=== PATIENT | female | born 1945 ===

== ENCOUNTER 2024-02-23 08:02 | Inpatient (IN) | payer MEDICARE, OTHER ==
[2024-02-23] MEDS ORDERED: Triamcinolone Acetonide 0.1% Crm 15 GM Tube TOP PRN (13:38)
[2024-02-23] MEDS: metroNIDAZOLE 500 MG Tab PO SCH (14:23)
[2024-02-23] MEDS: oxyCODONE 5 MG Tab PO PRN (14:23)
[2024-02-23] MEDS: hydrOXYzine HCl 25 MG Tab PO PRN (14:24)
[2024-02-23] MEDS: Sucralfate 1 GM Tab PO SCH (18:00)
[2024-02-23] MEDS: Pantoprazole 40 MG Tab.CR PO SCH (18:00)
[2024-02-23] MEDS: Acetaminophen 325 MG Tab PO PRN (18:04)
[2024-02-23] MEDS: Midodrine 5 MG Tab PO SCH (20:00)
[2024-02-23] MEDS ORDERED: Cyanocobalamin (Vitamin B12) 1,000 MCG Tab PO SCH (21:00)
[2024-02-23] MEDS ORDERED: Folic Acid 0.8 MG Tab PO SCH (21:00)
[2024-02-23] MEDS ORDERED: Non-Formulary Medication 1 Each (B12/Levomefolate Calcium/B-6 [Foltx Tablet] 1 EACH Tablet PO SCH (21:00)
[2024-02-23] MEDS ORDERED: Vitamin B6-pyridOXINE 100 MG Tab PO SCH (21:00)
[2024-02-23] MEDS: Cyanocobalamin (Vitamin B12) 1,000 MCG Tab PO SCH (21:13)
[2024-02-23] MEDS: Anastrozole 1 MG Tab PO SCH (21:13)
[2024-02-23] MEDS: Metoprolol Succinate 25 MG Tab.ER PO SCH (21:14)
[2024-02-23] MEDS: Cyanocobalamin/Folic Acid/Pyridoxine Tab PO SCH (21:14)
[2024-02-23] MEDS: Cholecalciferol (Vitamin D3) 25 MCG Tab PO SCH (21:15)
[2024-02-23] MEDS: atorvaSTATin 10 MG Tab PO SCH (21:16)
[2024-02-24] MEDS: Levothyroxine 100 MCG Tab PO SCH (06:03)
[2024-02-24] MEDS: Magnesium Oxide 400 MG Tab PO SCH (09:04)
[2024-02-24] MEDS: Potassium Chloride 20 MEQ Tab.ER PO SCH (09:05)
[2024-02-24] MEDS: Ferrous Sulfate 325 MG Tab PO SCH (09:05)
[2024-02-24] MEDS: Bumetanide 1 MG Tab PO SCH (11:10)
[2024-02-24] MEDS: Levofloxacin 750 MG Tab PO SCH (11:10)
[2024-02-24] MEDS: Ondansetron 4 MG Tab.DIS PO PRN (15:20)
[2024-02-25] MEDS: Levothyroxine 150 MCG Tab PO SCH (06:35)
[2024-02-25] MEDS: oxyCODONE 5 MG Tab PO SCH (08:47)
[2024-02-25] MEDS: Calcitriol 0.25 MCG Cap PO SCH (08:53)
[2024-02-25] MEDS: Promethazine 25 MG Tab PO PRN (14:44)
[2024-02-26 06:42] LABS: BASOPHILS ABSOLUTE AUTO 0.1 x10-3/uL (0.0-0.1); BASOPHILS PERCENT AUTO 1.1 % (0.2-1.5); EOSINOPHILS ABSOLUTE AUTO 0.2 x10-3/uL (0.0-0.8); EOSINOPHILS PERCENT AUTO 2.5 % (0.6-8.1); HEMATOCRIT 29.9 % (34.2-48.2); HEMOGLOBIN 9.8 g/dL (11.4-15.5); LYMPHOCYTES ABSOLUTE AUTO 0.7 x10-3/uL (1.0-4.4); LYMPHOCYTES PERCENT AUTO 8.4 % (18.4-52.1); MEAN CORPUSCULAR HEMOGLOBIN 29.5 pg (23.9-33.9); MEAN CORPUSCULAR HGB CONC 32.9 g/dL (31.9-34.8); MEAN CORPUSCULAR VOLUME 89.6 fL (76.7-100.5); MONOCYTES PERCENT AUTO 12.3 % (4.4-15.7); NEUTROPHILS ABSOLUTE AUTO 5.9 x10-3/uL (1.5-6.3); NEUTROPHILS PERCENT AUTO 75.7 % (30.8-76.2); PLATELET COUNT,PLT 156 x10(3)uL (151-488); RED CELL DISTRIBUTION WIDTH 16.9 % (12.3-16.5); WHITE BLOOD CELL COUNT,WBC 7.8 x10-3/uL (3.0-10.3)
[2024-02-26 06:52] LABS: BLOOD UREA NITROGEN,BUN 42 mg/dL (7-18); BUN/CREATININE RATIO 13.1 (9-20); CALCIUM 9.4 mg/dL (8.6-10.2); CARBON DIOXIDE,CO2 19 mmol/L (21-32); CHLORIDE,CL 100 mmol/L (100-110); EST CRCL DRUG DOSING (CG) 10.57 mL/min; ESTIMATED GFR 14 mL/min (>60); GLUCOSE RANDOM 90 mg/dL (80-116); POTASSIUM,K 3.4 mmol/L (3.5-5.3); SODIUM,NA 136 mmol/L (135-145)
[2024-02-26 06:55] LABS: RED BLOOD CELL COUNT 3.34 x10(6)uL (3.60-5.20)
[2024-02-26 07:00] LABS: CREATININE 3.2 mg/dL (0.55-1.02)
[2024-02-26] MEDS ORDERED: Sodium Chloride 0.9% 1,000 ML IV SCH (08:36)
[2024-02-26] MEDS: Sodium Chloride 0.9% 1,000 ML IV SCH (11:00)
[2024-02-27 07:05] LABS: BLOOD UREA NITROGEN,BUN 41 mg/dL (7-18); BUN/CREATININE RATIO 12.1 (9-20); CALCIUM 8.6 mg/dL (8.6-10.2); CARBON DIOXIDE,CO2 19 mmol/L (21-32); CHLORIDE,CL 102 mmol/L (100-110); EST CRCL DRUG DOSING (CG) 9.95 mL/min; ESTIMATED GFR 13 mL/min (>60); GLUCOSE RANDOM 105 mg/dL (80-116); POTASSIUM,K 3.5 mmol/L (3.5-5.3); SODIUM,NA 137 mmol/L (135-145)
[2024-02-27 07:13] LABS: CREATININE 3.4 mg/dL (0.55-1.02)
[2024-02-27] MEDS: Morphine 2 MG/ML SYRINGE IVPUSH SCH (10:02)
[2024-02-28 06:53] LABS: BASOPHILS ABSOLUTE AUTO 0.1 x10-3/uL (0.0-0.1); BASOPHILS PERCENT AUTO 0.9 % (0.2-1.5); EOSINOPHILS ABSOLUTE AUTO 0.2 x10-3/uL (0.0-0.8); EOSINOPHILS PERCENT AUTO 2.8 % (0.6-8.1); HEMATOCRIT 29.7 % (34.2-48.2); HEMOGLOBIN 9.8 g/dL (11.4-15.5); LYMPHOCYTES ABSOLUTE AUTO 0.7 x10-3/uL (1.0-4.4); LYMPHOCYTES PERCENT AUTO 8.3 % (18.4-52.1); MEAN CORPUSCULAR HEMOGLOBIN 29.8 pg (23.9-33.9); MEAN CORPUSCULAR HGB CONC 32.9 g/dL (31.9-34.8); MEAN CORPUSCULAR VOLUME 90.4 fL (76.7-100.5); MONOCYTES PERCENT AUTO 11.9 % (4.4-15.7); NEUTROPHILS ABSOLUTE AUTO 6.1 x10-3/uL (1.5-6.3); NEUTROPHILS PERCENT AUTO 76.1 % (30.8-76.2); PLATELET COUNT,PLT 177 x10(3)uL (151-488); RED CELL DISTRIBUTION WIDTH 17.8 % (12.3-16.5)
[2024-02-28 07:02] LABS: BLOOD UREA NITROGEN,BUN 37 mg/dL (7-18); BUN/CREATININE RATIO 10.9 (9-20); CALCIUM 8.9 mg/dL (8.6-10.2); CARBON DIOXIDE,CO2 17 mmol/L (21-32); CHLORIDE,CL 104 mmol/L (100-110); EST CRCL DRUG DOSING (CG) 9.95 mL/min; ESTIMATED GFR 13 mL/min (>60); GLUCOSE RANDOM 94 mg/dL (80-116); POTASSIUM,K 3.3 mmol/L (3.5-5.3); SODIUM,NA 138 mmol/L (135-145)
[2024-02-28 07:10] LABS: CREATININE 3.4 mg/dL (0.55-1.02)
[2024-02-28 07:19] LABS: RED BLOOD CELL COUNT 3.28 x10(6)uL (3.60-5.20)
[2024-02-28] MEDS: Morphine 2 MG/ML SYRINGE IVPUSH SCH (08:35)
[2024-02-28] MEDS ORDERED: Levofloxacin 500 MG Tab PO SCH (10:00)
[2024-02-28] MEDS: Levofloxacin 500 MG Tab PO SCH (12:02)
[2024-02-29 06:43] LABS: BASOPHILS ABSOLUTE AUTO 0.1 x10-3/uL (0.0-0.1); BASOPHILS PERCENT AUTO 0.8 % (0.2-1.5); EOSINOPHILS ABSOLUTE AUTO 0.2 x10-3/uL (0.0-0.8); EOSINOPHILS PERCENT AUTO 2.7 % (0.6-8.1); HEMATOCRIT 29.8 % (34.2-48.2); HEMOGLOBIN 9.6 g/dL (11.4-15.5); LYMPHOCYTES ABSOLUTE AUTO 0.8 x10-3/uL (1.0-4.4); LYMPHOCYTES PERCENT AUTO 11.1 % (18.4-52.1); MEAN CORPUSCULAR HEMOGLOBIN 29.6 pg (23.9-33.9); MEAN CORPUSCULAR HGB CONC 32.3 g/dL (31.9-34.8); MEAN CORPUSCULAR VOLUME 91.5 fL (76.7-100.5); MEAN PLATELET VOLUME 7.9 fL (7.1-12.4); MONOCYTES ABSOLUTE AUTO 0.9 x10-3/uL (0.3-1.0); MONOCYTES PERCENT AUTO 11.4 % (4.4-15.7); NEUTROPHILS ABSOLUTE AUTO 5.6 x10-3/uL (1.5-6.3); PLATELET COUNT,PLT 186 x10(3)uL (151-488); RED CELL DISTRIBUTION WIDTH 17.5 % (12.3-16.5); WHITE BLOOD CELL COUNT,WBC 7.5 x10-3/uL (3.0-10.3)
[2024-02-29 06:48] LABS: BLOOD UREA NITROGEN,BUN 37 mg/dL (7-18); BUN/CREATININE RATIO 11.6 (9-20); CALCIUM 8.9 mg/dL (8.6-10.2); CARBON DIOXIDE,CO2 16 mmol/L (21-32); CHLORIDE,CL 105 mmol/L (100-110); EST CRCL DRUG DOSING (CG) 10.57 mL/min; ESTIMATED GFR 14 mL/min (>60); GLUCOSE RANDOM 83 mg/dL (80-116); POTASSIUM,K 3.7 mmol/L (3.5-5.3); SODIUM,NA 139 mmol/L (135-145)
[2024-02-29 06:52] LABS: RED BLOOD CELL COUNT 3.25 x10(6)uL (3.60-5.20)
[2024-02-29 06:58] LABS: CREATININE 3.2 mg/dL (0.55-1.02)
[2024-03-01 06:18] LABS: BASOPHILS ABSOLUTE AUTO 0.1 x10-3/uL (0.0-0.1); BASOPHILS PERCENT AUTO 0.8 % (0.2-1.5); EOSINOPHILS ABSOLUTE AUTO 0.2 x10-3/uL (0.0-0.8); EOSINOPHILS PERCENT AUTO 2.4 % (0.6-8.1); HEMATOCRIT 30.4 % (34.2-48.2); HEMOGLOBIN 9.8 g/dL (11.4-15.5); LYMPHOCYTES ABSOLUTE AUTO 0.8 x10-3/uL (1.0-4.4); LYMPHOCYTES PERCENT AUTO 10.5 % (18.4-52.1); MEAN CORPUSCULAR HEMOGLOBIN 29.6 pg (23.9-33.9); MEAN CORPUSCULAR HGB CONC 32.3 g/dL (31.9-34.8); MEAN CORPUSCULAR VOLUME 91.5 fL (76.7-100.5); MEAN PLATELET VOLUME 7.6 fL (7.1-12.4); MONOCYTES ABSOLUTE AUTO 0.9 x10-3/uL (0.3-1.0); MONOCYTES PERCENT AUTO 10.9 % (4.4-15.7); NEUTROPHILS ABSOLUTE AUTO 5.9 x10-3/uL (1.5-6.3); NEUTROPHILS PERCENT AUTO 75.4 % (30.8-76.2); PLATELET COUNT,PLT 197 x10(3)uL (151-488); RED CELL DISTRIBUTION WIDTH 17.5 % (12.3-16.5); WHITE BLOOD CELL COUNT,WBC 7.9 x10-3/uL (3.0-10.3)
[2024-03-01 06:23] LABS: RED BLOOD CELL COUNT 3.32 x10(6)uL (3.60-5.20)
[2024-03-01 06:25] LABS: BLOOD UREA NITROGEN,BUN 37 mg/dL (7-18); BUN/CREATININE RATIO 12.3 (9-20); CALCIUM 8.6 mg/dL (8.6-10.2); CARBON DIOXIDE,CO2 14 mmol/L (21-32); CHLORIDE,CL 106 mmol/L (100-110); EST CRCL DRUG DOSING (CG) 11.28 mL/min; ESTIMATED GFR 16 mL/min (>60); GLUCOSE RANDOM 90 mg/dL (80-116); POTASSIUM,K 3.9 mmol/L (3.5-5.3); SODIUM,NA 139 mmol/L (135-145)
[2024-03-01] MEDS: Sodium Chloride 0.9% 10 ML Syringe FLUSH PRN (14:46)
[2024-03-01] MEDS: Morphine 2 MG/ML SYRINGE IVPUSH ONE (14:47)
[2024-03-02 06:35] LABS: BLOOD UREA NITROGEN,BUN 38 mg/dL (7-18); BUN/CREATININE RATIO 11.9 (9-20); CALCIUM 9.2 mg/dL (8.6-10.2); CHLORIDE,CL 106 mmol/L (100-110); EST CRCL DRUG DOSING (CG) 10.57 mL/min; ESTIMATED GFR 14 mL/min (>60); GLUCOSE RANDOM 85 mg/dL (80-116); POTASSIUM,K 4.2 mmol/L (3.5-5.3); SODIUM,NA 139 mmol/L (135-145)
[2024-03-02 06:51] LABS: CARBON DIOXIDE,CO2 10 mmol/L (21-32); CREATININE 3.2 mg/dL (0.55-1.02)
[2024-03-03 06:27] LABS: BLOOD UREA NITROGEN,BUN 41 mg/dL (7-18); BUN/CREATININE RATIO 11.7 (9-20); CALCIUM 9.4 mg/dL (8.6-10.2); CHLORIDE,CL 106 mmol/L (100-110); EST CRCL DRUG DOSING (CG) 9.67 mL/min; ESTIMATED GFR 13 mL/min (>60); GLUCOSE RANDOM 101 mg/dL (80-116); POTASSIUM,K 4.3 mmol/L (3.5-5.3); SODIUM,NA 139 mmol/L (135-145)
[2024-03-03 06:33] LABS: CARBON DIOXIDE,CO2 10 mmol/L (21-32)
[2024-03-03 06:34] LABS: CREATININE 3.5 mg/dL (0.55-1.02)
[2024-03-03 15:38] VITALS: BP 105/58; PULSE 98
== END 2024-03-03 10:40 | disposition hospice, inpatient (51) | DRG 947 ==
LOC: FB.MS 11:41
PROVIDERS: ADMIT Family Medicine; ATTEND Internal Medicine
DX: R53.1 Weakness (principal); I50.41 Acute combined systolic (congestive) and diastolic (congestive) heart failure; L03.115 Cellulitis of right lower limb; L97.822 Non-pressure chronic ulcer of other part of left lower leg with fat layer exposed; N17.9 Acute kidney failure, unspecified; I48.91 Unspecified atrial fibrillation; I25.10 Atherosclerotic heart disease of native coronary artery without angina pectoris; I27.20 Pulmonary hypertension, unspecified; Z66 Do not resuscitate; G47.33 Obstructive sleep apnea (adult) (pediatric); E11.22 Type 2 diabetes mellitus with diabetic chronic kidney disease; N18.9 Chronic kidney disease, unspecified; E05.90 Thyrotoxicosis, unspecified without thyrotoxic crisis or storm; M81.0 Age-related osteoporosis without current pathological fracture; F32.A Depression, unspecified; E11.51 Type 2 diabetes mellitus with diabetic peripheral angiopathy without gangrene; K74.69 Other cirrhosis of liver; R11.2 Nausea with vomiting, unspecified; Z79.899 Other long term (current) drug therapy; Z79.2 Long term (current) use of antibiotics; Z85.3 Personal history of malignant neoplasm of breast; Z85.89 Personal history of malignant neoplasm of other organs and systems; Z98.49 Cataract extraction status, unspecified eye; Z98.61 Coronary angioplasty status; Z90.710 Acquired absence of both cervix and uterus; Z90.12 Acquired absence of left breast and nipple; Z98.890 Other specified postprocedural states
CPT/HCPCS: 36415; 80048; 82947; 85025; 97110-GO; 97161-GP; 97165-GO; 97530-GO; 97530-GP; 97535-GO; 99305; 99308; 99309; 99316; A9270-GY; J2270; J3490; J7030; Q0162; U0002